=== PATIENT | female | born 1950 | race Caucasian/White ===

== ENCOUNTER 2018-07-31 06:33 | Day surgery (SDC) | payer MEDICARE, BC ==
[2018-07-30 14:40] VITALS: BMI 19.3
[~2018-07-31 06:33] MED LIST: Fluorouracil 100 MG, Enoxaparin Sodium 25 MG, EPINEPHrine 0.3 MG in Ophthalmic Irrigati... IRR SCH
[2018-07-31] MEDS ORDERED: Phenylephrine 2.5% Ophth Soln 5 ML BOT ONE (06:49)
[2018-07-31] MEDS ORDERED: Cyclopentolate 1% Opth Drop 2 ML BOT ONE (06:49)
[2018-07-31] MEDS ORDERED: PROPOFOL 20 ML ONE (08:02)
[2018-07-31] MEDS ORDERED: Fentanyl 100 MCG/2 ML VIAL ONE (08:02)
[2018-07-31] MEDS ORDERED: Midazolam HCl 2 mg/2 ml Vial ONE (08:02)
--- NOTE | 2018-07-31 09:36 | OP ---
DATE OF PROCEDURE: 07/31/2018 PREOPERATIVE DIAGNOSIS: Epiretinal membrane, left eye. POSTOPERATIVE DIAGNOSIS: Epiretinal membrane, left eye. PROCEDURE PERFORMED: Pars plana vitrectomy and membrane peel, left eye. ANESTHESIA: Local with monitored anesthesia care. DESCRIPTION OF PROCEDURE: The patient was identified in preoperative holding area. Appropriate informed consent for planned surgical procedure on the left eye had been obtained. The patient was transported to the operative suite. Appropriate cardiopulmonary monitoring was established. Local anesthesia was obtained using retrobulbar modified Van Lint lid block using 50:50 mixture of 4% lidocaine and 0.75% bupivacaine. The patient was prepped and draped in usual sterile manner for ophthalmic surgery, left eye. Lid speculum was placed in the left eye. A 25-gauge trocar was placed through the conjunctiva and sclera superotemporally, inferotemporally, and supranasally. Infusion line was placed inferotemporally. Light pipe and vitreous cutter were inserted into the eye. Core vitrectomy was performed. Indocyanine green dye was infused on the posterior pole x1 identifying the epiretinal membrane. This was elevated using a membrane scraper peripherally and peeled across the macula in one piece using end-gripping forceps. Indirect ophthalmoscopy was used to exam the retina 360 degrees. No holes, breaks, or tears were identified. Trocars were removed. The eye was noted to retain pressure well. Retrobulbar Kenalog and subconjunctival Ancef were placed. Antibiotic ointment was placed and the eye was patched and shielded. The patient was taken to the postoperative recovery unit in good condition, having suffered no immediate perioperative complications. The patient was instructed to keep patch and shield on, avoid lifting or bending. Followup appointment with Dr. Franklin. Job ID: [id number]
[2018-07-31] MEDS ORDERED: PROPOFOL 200 MG/20 ML VIAL ONE (14:48)
[2018-07-31] MEDS ORDERED: Lidocaine 1% PF 5 ML VIAL ONE (14:48)
[2018-07-31] MEDS ORDERED: Lidocaine 4% PF 5 ML AMP ONE (14:48)
[2018-07-31] MEDS ORDERED: Bupivacaine 0.75% 10 ML AMP ONE (14:48)
[2018-07-31] MEDS ORDERED: CEFAZOLIN 1 GM VIAL ONE (14:48)
[2018-07-31] MEDS ORDERED: Indocyanine Green 25 MG/10 ML VIAL ONE (14:48)
[2018-07-31] MEDS ORDERED: Triamcinolone 40 MG/ML VIAL ONE (14:48)
[2018-07-31] MEDS ORDERED: Maxitrol 0.1% Opth Oint 3.5 GM TUBE ONE (14:48)
== END 2018-07-31 10:12 | disposition home or self-care (01) ==
LOC: SDC 06:33
PROVIDERS: ATTEND Ophthalmology Retina Specialist
PROC: 08T53ZZ Resection of Left Vitreous, Percutaneous Approach (ICD-10-PCS; principal; 2018-07-31)
PROC: 08NF3ZZ Release Left Retina, Percutaneous Approach (ICD-10-PCS; 2018-07-31)
DX: H35.372 Puckering of macula, left eye (principal); Z88.0 Allergy status to penicillin
CPT/HCPCS: J0171; J0690; J1650; J2001; J2250; J2704; J3010; J3301; J3490; J9190